=== PATIENT | male | born 1990 | race Caucasian/White ===

== ENCOUNTER 2025-09-29 12:15 | Emergency (ER) | payer MEDICAID, SELFPAY ==
[2025-09-29 12:15] VITALS: BMI 24.4
[2025-09-29 13:01] VITALS: BP 122/83; PULSE 107; RESP 18; TEMP 37.9; O2SAT 97
--- NOTE | 2025-09-29 13:05 | EDNOTE_ITS ---
<Statement entered by Megan Cedeno MD - 10/01/25 17:48> As co-signing physician, I was present and available for consult prn. I concur with the plan and care as documented by the midlevel provider. Upper Respiratory Inf. RME/HPI General Chief Complaint: Flu Like Symptoms Stated Complaint: SORE THROAT X4 DAYS Time Seen by Provider: 09/29/25 13:05 Arrival date/time: 09/29/25 12:15 RME / HPI RME / HPI Narrative: 35-year-old male presents to the ER complaining of gradually worsening sore throat with odynophagia in the setting of having a cold a week ago. Patient states that his cough has essentially subsided however his throat pain has been worsening. Denies any nausea, vomiting, dysphagia, shortness of breath. Related Data Previous Rx's ?Medication ?Instructions ?Recorded Zofran 4 mg ODT 1 tab PO q4hprn nausea #6 ta bs 03/28/16 amoxicillin 875 mg-potassium 1 tab PO Q12H #20 tabs clavulanate 125 mg tablet Allergies Allergy/AdvReac Type Severity Reaction Status Date / Time No Known Allergies Allergy Verified 09/29/25 12:18 ED Exam Narrative Physical exam: Constitutional: Patient alert and oriented. Well appearing. No acute distress. Not toxic appearing. Head: Normocephalic, atraumatic. Eyes: Periorbital regions bilaterally normal to inspection. Conjunctiva clear bilaterally. Sclera anicteric bilaterally. Pupils equal, round, reactive to light bilaterally. Extraocular movements intact bilaterally. Ears: External ears normal to inspection bilaterally. No mastoid tenderness bilaterally. EAC without edema or exudate bilaterally. TMs without erythema or bulging. Mouth/Throat: Mucous membranes moist. No stridor or muffled voice. Uvula midline. Rise and fall of soft palate normal. Positive erythema, edema and exudate of tonsils bilaterally. No peritonsillar fullness. No trismus. Handling secretions without difficulty. Airway widely patent. Neck: Supple. Trachea midline. No JVD. No nuchal rigidity. No midline tenderness or step-offs. Normal range of motion. Positive anterior cervical lymphadenopathy bilaterally. Respiratory: Normal effort. No accessory muscle use or respiratory distress. Lungs clear to auscultation bilaterally without rhonchi, wheezes, or crackles. Cardiovascular: RRR. Normal S1/S2. No murmurs or rubs. Radial pulses intact bilaterally. Abdomen: Soft. Non-distended. Non-tender throughout. No pulsatile mass. No guarding or rebound. Negative Alves?s sign. Negative McBurney?s point tenderness. Negative Rovsing?s. Back: No midline tenderness or step-offs. No CVA tenderness to palpation bilaterally. Upper Extremities: No gross deformities. Lower Extremities: No gross deformities. No edema or calf tenderness. Neuro: Speech normal. No gross motor or sensory deficits to upper or lower extremities bilaterally. GCS 15. CN II?XII grossly intact. Skin: Warm, dry, normal color. Psych: Normal affect. Cooperative. Normal insight. Course Quality Measures none Orders Category Date Time Status Acetaminophen Tab [Tylenol ES Tab] Med 09/29/25 13:16 Discontinued 1,000 mg PO X1 ONE Amoxicillin/Pot Clav 875 [Augmentin 875] Med 09/29/25 13:15 Discontinued 1 tab PO X1 ONE dexAMETHasone INJ [Decadron Inj] Med 09/29/25 13:15 Discontinued 10 mg IM X1 ONE Vital Signs Vital signs: Vital Signs Temperature 100.3 F 09/29/25 13:01 Pulse Rate 107 H 09/29/25 13:01 Respiratory Rate 18 09/29/25 13:01 Blood Pressure 122/83 09/29/25 13:01 Pulse Oximetry (%) 97 09/29/25 13:01 Oxygen Delivery Method Room Air 09/29/25 13:01 Upper Respiratory Infection MDM Narrative MDM Narrative:: MDM Suspect: viral URI complicated by acute tonsillopharyngitis without signs of additional focal bacterial infection indicating tx, doubt [employer]/parapharyngeal abscess/epiglottis given lack of mass effect in OP cavity (uvula midline, no muffled voice/stridor/tripoding/drooling, airway widely pa tent, tolerating secretions and PO without difficulty) Plan: strict return precautions advised, supportive tx, Augmentin, dexamethasone, f/u with pmd and ENT 1-2 days. Medication side effects and pre cautions discussed with the pt. At the time of reassessment prior to discharge, the patient remains alert and oriented ?3 with GCS 15. Vitals are normal, pain is controlled, and the patient is tolerating oral intake without nausea or vomiting. The patient is agreeable to discharge and verbalizes understanding of the diagnosis, studies, treatment plan, medications (including side effects/precautions), and strict ER return precautions as discussed in the ED. All concerns were addressed, and the patient is comfortable with the plan. Patient data External records reviewed:: [facility] previous records Clinical information provided by:: patient Social determinants that could affect healthcare access:: none Patient has the following chronic illnesses:: As noted How is presenting disease/condition affected by chronic disease/condition?: no chronic disease Evaluation data The following diagnostics were reviewed and interpreted by me:: other (specify) Lab and/or radiology exams considered but not ordered:: Additional Labs and radiology considered, but not ordered as they were not clinically indicated at this time. Interpretation Summary: None Medications / Prescriptions Medications or Prescriptions considered but not ordered:: I ordered medications based on the patient?s clinical needs and assessment, as documented in the chart. For medications not prescribed, they were not indicated for the patient's current condition, and I determined they were unnecessary at this time to avoid potential risks or complications. Medication administrations:: Medication Administration History Discontinued Medications Acetaminophen (Acetaminophen 500 Mg Tablet) 1,000 mg PO X1 ONE Stop: 09/29/25 13:17 Last Admin: 09/29/25 13:32 Dose: 1,000 mg Documented By: Amoxicillin/Clavulanate Potassium (Amoxicillin/Pot Clav 875 Tablet) 1 tab PO X1 ONE Stop: 09/29/25 13:16 Last Admin: 09/29/25 13:30 Dose: 1 tab Documented By: Dexamethasone Sodium Phosphate (Dexamethasone Sod Phos Inj 10 Mg/Ml Vial) 10 mg IM X1 ONE Stop: 09/29/25 13:16 Last Admin: 09/29/25 13:33 Dose: 10 mg Documented By: As noted Consultations Consultation(s) initiated? (list below): No Diagnosis Upper Respiratory Differential Diagnosis: upper respiratory infection, otitis media and pharyngitis Most likely diagnosis given after review of the tests above:: Acute tonsillopharyngitis which is exudative Admission Indicated Admission indicated?: not indicated Explain why admission is indicated or not indicated:: Escalation of care including admission/observation considered but I decided to discharge because based on the overall clinical presentation, and after c onsideration of the patient's course in the emergency department and plan for outpatient management, I believe that neither further observation nor inpatient care is required at this time. Admission Request Was there a request for admission?: No Disposition Plan Disposition Plan: Discharge Discharge Attestation Discharge Attestation: The patient and all family members were given an opportunity to ask questions and understood the discharge instructions. Discharge instructions specifically effects, indications for sooner follow up or return to the emergency department, and the expected course of current diagnosis. Patient condition: Stable Discharge Plan Plan Patient Disposition: HOME (Self Care) Patient condition on transfer: Stable Prescriptions/Referrals Prescriptions/Med Rec: New amoxicillin-pot clavulanate 875-125 mg tablet 1 tab PO Q12H Qty: 20 0RF No Action Zofran 4 mg ODT 1 tab PO q4hprn nausea Qty: 6 0RF Problem List Clinical Impression: Acute tonsillitis Patient/Caregiver Discharge Instructions Education Materials: Tonsillitis in Adults Additional Instructions: Follow up with your primary medical doctor and an ENT within 24 hours. Return to the Emergency Room immediately for any new, worsening, continuing symptoms or any concerns at all. Return to the Emergency Room within 24 hours if you are unable to follow up with your primary medical doctor and an ENT within 24 hours. Print Language: Italian Stand Alone Forms: Dawn Award Info., Patient Portal Info Letter PA/DIMITRIOS Supervising Physician PA/DIMITRIOS Supervising Physician: Dr. Cedeno
[2025-09-29] MEDS: AMOXICILLIN/POT CLAV 875 TABLET 1 TAB PO (13:30)
[2025-09-29] MEDS: ACETAMINOPHEN 500 MG TABLET 1000 MG PO (13:32)
== END 2025-09-29 13:53 | disposition home or self-care (01) ==
PROVIDERS: Emergency Provider Physician Assistant; PCP Family Medicine
DX: J03.90 Acute tonsillitis, unspecified (principal)
CPT/HCPCS: 96372; 99282; J1100; A9270